=== PATIENT | female | born 1995 | race Caucasian/White ===

== ENCOUNTER 2019-08-05 18:11 | Emergency (ER) | payer OTHER ==
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
[2019-08-05 22:10] VITALS: BP 124/79
== END 2019-08-05 22:08 | disposition home or self-care (01) ==
LOC: ED 18:11
DX: S16.1XXA Strain of muscle, fascia and tendon at neck level, initial encounter (principal); S06.0X0A Concussion without loss of consciousness, initial encounter; V43.52XA Car driver injured in collision with other type car in traffic accident, initial encounter
CPT/HCPCS: 70450; 72125; 99283; 99284

== ENCOUNTER 2022-03-05 18:37 | Outpatient (CLI) | payer OTHER ==
[2022-03-05 22:33] LABS: BACTERIAL VAGINOSIS DNA POSITIVE (NEGATIVE); CANDIDA GLABRATA DNA NEGATIVE (NEGATIVE); CANDIDA GROUP DNA NEGATIVE (NEGATIVE); CANDIDA KRUSEI DNA NEGATIVE (NEGATIVE); TRICHOMONAS VAGINALIS DNA NEGATIVE (NEGATIVE)
[2022-03-05 23:38] LABS: CHLAMYDIA TRACHOMATIS DNA NEGATIVE (NEGATIVE); NEISSERIA GONORRHOEAE DNA NEGATIVE (NEGATIVE)
== END 2022-03-05 18:38 | disposition home or self-care (01) ==
LOC: LAB.N 18:37
PROVIDERS: ATTEND Physician Assistant
DX: N76.0 Acute vaginitis (principal)
CPT/HCPCS: 81514; 87491; 87591; 87661

== ENCOUNTER 2022-04-03 15:32 | Emergency (ER) | payer OTHER ==
[2022-04-03 15:57] LABS: BILIRUBIN,URINE NEGATIVE (NEGATIVE); GLUCOSE, URINE (UA) NEGATIVE (NEGATIVE); KETONES,URINE (UA) TRACE mg/dL (NEGATIVE); LEUKOCYTE ESTERASE, URINE NEGATIVE (NEGATIVE); NITRITE,URINE NEGATIVE (NEGATIVE); OCCULT BLOOD,URINE NEGATIVE (NEGATIVE); PROTEIN,URINE NEGATIVE (NEGATIVE); UROBILINOGEN,URINE 0.2 (NORMAL) E.U./dL (NORMAL)
[2022-04-03 15:59] LABS: CLARITY,URINE CLEAR (CLEAR); HCG UR QUAL NEGATIVE
[2022-04-03 16:00] LABS: BASOPHILS % (AUTO) 0.3 %; EOSINOPHILS % (AUTO) 0.1 %; HCT - HEMATOCRIT 41.9 % (37.0-47.0); HGB - HEMOGLOBIN 14.5 g/dL (12.0-16.0); LYMPHOCYTES # (AUTO) 0.8 10^3/uL (1.5-3.5); LYMPHOCYTES % (AUTO) 11.2 %; MEAN CORPUSCULAR HEMOGLOBIN 30.9 pg (27.0-31.0); MEAN CORPUSCULAR HGB CONC 34.6 g/dL (32.0-36.0); MEAN CORPUSCULAR VOLUME 89.3 fL (81.0-99.0); MEAN PLATELET VOLUME 9.4 fL (7.9-10.8); MONOCYTES # (AUTO) 0.4 10^3/uL (0.0-1.0); MONOCYTES % (AUTO) 4.9 %; NEUTROPHILS # (AUTO) 6.1 10^3/uL (1.5-6.6); NEUTROPHILS % (AUTO) 83.2 %; PLT - PLATELET COUNT 262 10^3/uL (130-450); RED BLOOD COUNT 4.69 10^6/uL (4.20-5.40); RED CELL DISTRIBUTION WIDTH 11.6 % (12.0-15.0); WHITE BLOOD COUNT 7.3 x10^3/uL (4.8-10.8)
[2022-04-03 16:13] LABS: ALBUMIN 4.1 g/dL (3.2-5.5); ALBUMIN/GLOBULIN RATIO 1.2 (1.0-2.2); BILIRUBIN,TOTAL 0.7 mg/dL (0.2-1.0); CALCIUM 9.1 mg/dL (8.5-10.3); CREATININE 0.8 mg/dL (0.4-1.0); POTASSIUM 3.8 mmol/L (3.5-5.0); TOTAL PROTEIN 7.5 g/dL (6.7-8.2)
[2022-04-03] MEDS ORDERED: ONDANSETRON ODT 4 MG TABLET TL STA (17:41)
--- NOTE | 2022-04-03 17:45 | ED Physician Documentation ---
PD HPI NVD - Stated complaint Stated Complaint: N/V - Chief complaint Chief Complaint: Abd Pain - History obtained from History obtained from: Patient - History of Present Illness Timing - onset: Last night (awoke at 3 am with upper abd pain, nausea and vomiting that has persisted to this time. Episodic vomiting.) Timing - details: Abrupt onset Associated symptoms: Loss of appetite. No: Fever, Chest pain, Hematemesis, Near syncope / syncope Contributing factors: No: Sick contact, Bad food, Alcohol use Similar symptoms before: No diagnosis (similar episode about a month ago, with symptoms lasting about 6-12 hours.) Recently seen: Not recently seen Review of Systems Constitutional: denies: Fever, Chills Nose: denies: Rhinorrhea / runny nose, Congestion Throat: denies: Sore throat Cardiac: denies: Chest pain / pressure Respiratory: denies: Dyspnea, Cough GI: reports: Abdominal Pain, Nausea, Vomiting. 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 (Cervical surgery) - Present Medications Home Medications: Ambulatory Orders Medication Instructions Recorded Confirmed Citalopram [CeleXA] 0 mg PO DAILY 04/03/22 04/03/22 Dicyclomine [Bentyl] 10 mg PO QID PRN 04/03/22 04/03/22 Fexofenadine [[place]] 180 mg PO DAILY 04/03/22 04/03/22 HYDROcod/ACETAM 5/325 [[place] 5/325] 1 ea PO Q6H PRN #10 tablet 04/03/22 Omeprazole Magnesium 20 mg PO DAILY 04/03/22 04/03/22 Ondansetron Odt [Zofran] 4 mg TL Q6H PRN #10 tablet 04/03/22 Promethazine Supp [Phenergan Supp] 25 mg MT Q6H PRN #4 supp 04/03/22 buPROPion [Wellbutrin Xl] 150 mg ORAL DAILY 04/03/22 04/03/22 - Allergies Allergies/Adverse Reactions: Allergies Allergy/AdvReac Type Severity Reaction Status Date / Time No Known Drug Allergies Allergy Verified 04/03/22 15:34 - Social History Does the pt smoke?: No Smoking Status: Never smoker Does the pt drink ETOH?: No Does the pt have substance abuse?: No - Immunizations Immunizations are current?: Yes - POLST Patient has POLST: No PD ED PE NORMAL - Vitals Vital signs reviewed: Yes - General General: Alert and oriented X 3, Well developed/nourished - HEENT HEENT: PERRL (nonicteric), Pharynx benign. No: Moist mucous membranes - Neck Neck: Supple, no meningeal sign, No adenopathy - Cardiac Cardiac: RRR (tachycardic though), No murmur - Respiratory Respiratory: No respiratory distress, Clear bilaterally - Abdomen Abdomen: Normal bowel sounds, Soft, Non distended, No organomegaly, Other (tender epigastric to RUQ area with some guarding on palpation. No percussion nor rebound tenderness. ) - Female Female : Deferred - Rectal Rectal: Deferred - Back Back: No CVA TTP - Derm Derm: Normal color, Warm and dry - Extremities Extremities: No edema, No calf tenderness / cord - Neuro Neuro: Alert and oriented X 3, No motor deficit, Normal speech Results - Vitals Vitals: Oxygen O2 Source Room air - Labs Labs: Laboratory Tests 04/03/22 04/03/22 04/03/22 15:48 15:53 15:53 WBC 7.3 RBC 4.69 Hgb 14.5 Hct 41.9 MCV 89.3 MCH 30.9 MCHC 34.6 RDW 11.6 L Plt Count 262 MPV 9.4 Neut # (Auto) 6.1 Lymph # (Auto) 0.8 L [place] # (Auto) 0.4 Eos # (Auto) 0.0 Baso # (Auto) 0.0 Absolute Nucleated RBC 0.00 Nucleated RBC % 0.0 Sodium 134 L Potassium 3.8 Chloride 104 Carbon Dioxide 20 L Anion Gap 10.0 BUN 13 Creatinine 0.8 Estimated GFR (MDRD) 87 L Glucose 102 H Calcium 9.1 Total Bilirubin 0.7 AST 15 ALT 15 Alkaline Phosphatase 52 Total Protein 7.5 Albumin 4.1 Globulin 3.4 Albumin/Globulin Ratio 1.2 Lipase 29 Urine Color YELLOW Urine Clarity CLEAR Urine pH 6.0 Ur Specific [place] 1.025 Urine Protein NEGATIVE Urine Glucose (UA) NEGATIVE Urine Ketones TRACE Urine Occult Blood NEGATIVE Urine Nitrite NEGATIVE Urine Bilirubin NEGATIVE Urine Urobilinogen 0.2 (NORMAL) Ur Leukocyte Esterase NEGATIVE Ur Microscopic Review NOT INDICATED Urine Culture Comments NOT INDICATED Urine HCG, Qual NEGATIVE - Rads (name of study) upper abd U/S Radiology: Prelim report reviewed (no acute process. Normal GB and CBD. ), See rad report PD MEDICAL DECISION MAKING - ED course Complexity details: reviewed results, re-evaluated patient (improved symptoms with IV fluids and meds. ), considered differential, d/w patient Departure - Departure Disposition: Home, Self Care Clinical Impression: Acute nausea with nonbilious vomiting, Upper abdominal pain Condition: Stable Record reviewed to determine appropriate education?: Yes Instructions: ED Food Poison Or Gastroenteritis Follow-Up: ISREAL FRIEDMAN III, MD [Primary Care Provider] - Prescriptions: HYDROcod/ACETAM 5/325 [[place] 5/325] 1 ea PO Q6H PRN #10 tablet PRN Reason: Pain Promethazine Supp [Phenergan Supp] 25 mg MT Q6H PRN #4 supp PRN Reason: Nausea / Vomiting Ondansetron Odt [Zofran] 4 mg TL Q6H PRN #10 tablet PRN Reason: Nausea / Vomiting Comments: This seems likely to be either food related or food intolerance or also like gleed to be just a viral gastroenteritis given your symptoms and also the fever he had. No signs of localized infection such as gallbladder pancreas or liver. You are not tender in the appendix area. I presume there for a viral type illness. Small frequent fluids and bland food for the next day or 2. Off work for a day or 2 if needed. Use ondansetron every 6 hours if needed for nausea. Promethazine suppository if vomiting despite the ondansetron. Tylenol very 4 to 6 hours if needed for persistent pain. I did prescribe a small amount of hydrocodone pain medicine to use if needed for worse pain. Abdominal pain seems likely to be just some muscular or irritation of the intestine related to the vomiting. No signs of more significant process. I would anticipate improvement in your symptoms in the next day or 2 and controlled with the above medications. Recheck if not better in that timeframe and return sooner if worse. I sent your prescriptions to [facility] in [place]. I am prescribing a short course of narcotic pain medication for you. These are potentially dangerous and addictive medications that should be used carefully. These medications may constipate you. Take an [id number] stool softener such as docusate twice daily with plenty of water while taking these medications. If you go 24 hours without a bowel movement, take [id number] MiraLAX, per package instructions. Do not drink or drive while taking these medications. If you received narcotic or sedating medications while in the emergency department do not drive for 24 hours. Store this medication in a safe, secure place and out of reach of children. It is a violation of federal law to give or sell this medication to another person or to use in a manner other than prescribed. The ED will not refill narcotic prescriptions, including prescriptions lost or stolen. You can dispose of unwanted medications at the [facility]'s office or at several pharmacies such as [facility]. Forms: Activity restrictions Discharge Date/Time: 04/03/22 20:04
[2022-04-03] MEDS ORDERED: ONDANSETRON 4 MG/2 ML VIAL IVP STA (17:53)
[2022-04-03] MEDS ORDERED: KETOROLAC 15 MG/ML VIAL IVP STA (17:53)
[2022-04-03] MEDS ORDERED: SODIUM CHLORIDE 0.9% 1,000 ML IV STA (17:53)
[2022-04-03] MEDS ORDERED: FAMOTIDINE 20 MG/2 ML VIAL IVP STA (17:53)
--- NOTE | 2022-04-03 18:50 | Ultrasound Report ---
PROCEDURE: Abdomen Limited INDICATIONS: N/V, RUQ abd pain TECHNIQUE: Real-time scanning was performed of the right upper quadrant, with image documentation. COMPARISON: None. FINDINGS: Liver: Normal size. Increased in echogenicity. Gallbladder: Gallbladder is distended. No stones or sludge. No gallbladder wall thickening. No perich olecystic fluid. Negative sonographic Maloney sign. Biliary ducts: Intrahepatic bile ducts are non-dilated. Extrahepatic bile duct caliber measures 3 m m. Normal is 6-7 mm or less in diameter, or 10 mm or less post-cholecystectomy. Pancreas: Visualized portions of the pancreas are sonographically normal. Tail was not well-seen. Right kidney: Measures 9.6 cm. Cortex 1.1 cm. No hydronephrosis.. IMPRESSION: Exam is technically difficult due to acoustic windows. 1. No acute cholecystitis. No gallstones. 2. Increased echogenicity of the hepatic parenchyma. This is most commonly seen in hepatic steatosis. Other forms of hepatocellular disease could have a similar appearance. Reviewed by: Estevan Dumas MD on 04/03/2022 5:49 PM AR Approved by: Estevan Dumas MD on 04/03/2022 5:49 PM AR Station ID: [id number]
[2022-04-03] MEDS ORDERED: HYDROmorphone 1 MG/ML CARPUJECT IVP STA (18:55)
[2022-04-03] MEDS ORDERED: MAG HYDROX/AL HYDROX/SIMETH 30 ML UDC PO STA (18:55)
[2022-04-03 19:40] VITALS: BP 104/77
== END 2022-04-03 20:04 | disposition home or self-care (01) ==
LOC: ED 15:32
DX: R11.2 Nausea with vomiting, unspecified (principal); R10.10 Upper abdominal pain, unspecified
CPT/HCPCS: 36415; 76705; 80053; 81003; 81025; 83690; 85025; 96374; 96375; 99283; 99284; A9270; J1170; Q0162; 81001; 87086